=== PATIENT | male | born 1955 | race Caucasian/White ===

== ENCOUNTER 2022-10-09 10:50 | Outpatient (OUT) | payer MEDICARE, OTHER, SELFPAY | END 2022-10-09 10:51 | disposition home or self-care (01) | LOC: WC 10:52 | PROVIDERS: Visit Provider Podiatrist Foot & Ankle Surgery | DX: E11.621 Type 2 diabetes mellitus with foot ulcer (principal); L97.511 Non-pressure chronic ulcer of other part of right foot limited to breakdown of skin | CPT/HCPCS: 11042; G0463 ==

== ENCOUNTER 2022-11-12 09:14 | Outpatient (OUT) | payer MEDICARE, OTHER, SELFPAY | END 2022-11-12 09:15 | disposition home or self-care (01) | LOC: WC 09:14 | PROVIDERS: Visit Provider Physician Assistant | DX: E11.621 Type 2 diabetes mellitus with foot ulcer (principal); L97.511 Non-pressure chronic ulcer of other part of right foot limited to breakdown of skin; Z79.84 Long term (current) use of oral hypoglycemic drugs; E11.21 Type 2 diabetes mellitus with diabetic nephropathy; E11.65 Type 2 diabetes mellitus with hyperglycemia; M20.41 Other hammer toe(s) (acquired), right foot | CPT/HCPCS: 11055 ==

== ENCOUNTER 2022-12-10 09:27 | Outpatient (OUT) | payer MEDICARE, OTHER, SELFPAY | END 2022-12-10 09:28 | disposition home or self-care (01) | LOC: WC 09:27 | PROVIDERS: Visit Provider Podiatrist Foot & Ankle Surgery | DX: E11.621 Type 2 diabetes mellitus with foot ulcer (principal); L97.511 Non-pressure chronic ulcer of other part of right foot limited to breakdown of skin; L84 Corns and callosities; E11.40 Type 2 diabetes mellitus with diabetic neuropathy, unspecified | CPT/HCPCS: 11055 ==

== ENCOUNTER 2023-01-07 10:51 | Outpatient (OUT) | payer MEDICARE, OTHER, SELFPAY | END 2023-01-07 10:52 | disposition home or self-care (01) | LOC: WC 10:51 | PROVIDERS: Visit Provider Physician Assistant | DX: E11.621 Type 2 diabetes mellitus with foot ulcer (principal); L97.511 Non-pressure chronic ulcer of other part of right foot limited to breakdown of skin; E11.40 Type 2 diabetes mellitus with diabetic neuropathy, unspecified; L84 Corns and callosities | CPT/HCPCS: 11055 ==